=== PATIENT | female | born 1950 | race Caucasian/White ===

== ENCOUNTER → 2018-10-02 | Outpatient (CLI) | payer MEDICARE, OTHER | END | disposition home or self-care (01) | LOC: RT 09:49 | PROVIDERS: ATTEND Allergy & Immunology | DX: J45.50 Severe persistent asthma, uncomplicated (principal) | CPT/HCPCS: 36600; 82805 ==

== ENCOUNTER 2018-12-14 09:34 | Emergency (ER) | payer OTHER ==
[~2018-12-14] VITALS: Ht 157.5 cm; Wt 78.5 kg
[2018-12-14 09:38] VITALS: BP 137/77
[2018-12-14] MEDS ORDERED: HYDROcodone-ACET 7.5/325MG TAB PO ONE (10:15)
[2018-12-14] MEDS ORDERED: KETOROLAC TROMETH 60MG/2ML VIAL IM ONE (10:15)
== END 2018-12-14 11:07 | disposition home or self-care (01) ==
LOC: ER 09:34
DX: S39.012S Strain of muscle, fascia and tendon of lower back, sequela (principal); M54.41 Lumbago with sciatica, right side; J45.909 Unspecified asthma, uncomplicated; I10 Essential (primary) hypertension; I25.10 Atherosclerotic heart disease of native coronary artery without angina pectoris; X50.1XXS Overexertion from prolonged static or awkward postures, sequela
CPT/HCPCS: 72100; 93005; 96372; 99283; J1885

== ENCOUNTER → 2019-09-29 | Emergency (ER) | payer OTHER ==
[~2019-09-29] VITALS: Ht 160 cm; Wt 72.6 kg
[~2019-09-29] MED LIST: CLINDAMYCIN 600MG IV 50 ML IV ONE; CLINDAMYCIN HCL 150 MG CAP PO ONE; cefTRIAXone 1GM/50ML D5W 50 ML IV ONE
[2019-09-29 21:09] LABS: Basophils # (auto) 0.1 10 ^3/uL (0-0.2); Eosinophils # (auto) 0.5 10 ^3/uL (0-0.8); Eosinophils % (auto) 6.4 % (0.0-7.0); Hematocrit 39.2 % (36.0-46.0); Hemoglobin 13.2 g/dL (12.2-16.2); Lymphocytes # (auto) 1.8 10 ^3/uL (0.4-5.4); Lymphocytes % (auto) 23.5 % (10.0-50.0); Mean Corpuscular Hemoglobin 29.6 pg (28.0-32.0); Mean Corpuscular Hgb Conc. 33.6 g/dL (32.0-36.0); Mean Corpuscular Volume 88.1 fL (80.0-100.0); Monocytes # (auto) 0.9 10 ^3/uL (0-1.3); Monocytes % (auto) 11.7 % (0.0-12.0); Neutrophils # (auto) 4.5 10 ^3/uL (1.6-8.6); Neutrophils % (auto) 57.4 % (37.0-80.0); Nucleated Red Blood Cells % 0.1 %; Platelet Count (auto) 348 10^3/uL (140-450); Red Blood Cells 4.45 10^6/uL (4.0-5.20); Red Cell Distribution Width 14.7 % (11.8-14.3); White Blood Cell 7.8 10^3/uL (4.4-10.8)
[2019-09-29 21:30] LABS: Albumin 3.4 g/dL (3.4-5.0); Calcium 9.2 mg/dL (8.5-10.1); Potassium 3.2 mmol/L (3.5-5.1)
[2019-09-29 21:34] LABS: Bilirubin, Total 0.5 mg/dL (0.2-1.0); Total Protein 7.5 g/dL (6.4-8.2)
[2019-09-29 22:56] LABS: Urine Bacteria FEW /hpf (None Seen); Urine Blood TRACE /uL (Negative); Urine Mucus FEW (None Seen); Urine Specific Gravity 1.011 (1.001-1.035); Urine WBC 273 /hpf (0 - 5); Urine WBC Clumps PRESENT /hpf (None Seen)
[2019-09-30] VITALS: BP 105/81
== END | disposition home or self-care (01) ==
LOC: ER 18:54
DX: N39.0 Urinary tract infection, site not specified (principal); R05 Cough; R06.02 Shortness of breath; R09.81 Nasal congestion
CPT/HCPCS: 36415; 71045; 80053; 81001; 85025; 87070; 87804; 87880; 96365

== ENCOUNTER → 2019-11-30 | Emergency (ER) | payer OTHER ==
[~2019-11-30] VITALS: Ht 160 cm; Wt 74.8 kg
[~2019-11-30] MED LIST changes: +ACETAMINOPHEN 325 MG TAB PO ONE; -CLINDAMYCIN 600MG IV 50 ML IV ONE; -CLINDAMYCIN HCL 150 MG CAP PO ONE; -cefTRIAXone 1GM/50ML D5W 50 ML IV ONE
[2019-11-30 15:43] VITALS: BP 126/82
[2019-11-30 16:14] LABS: Basophils # (auto) 0 10 ^3/uL (0-0.2); Basophils % (auto) 0.4 % (0.0-2.0); Eosinophils # (auto) 0 10 ^3/uL (0-0.8); Eosinophils % (auto) 0.2 % (0.0-7.0); Hematocrit 36.6 % (36.0-46.0); Hemoglobin 12.6 g/dL (12.2-16.2); Lymphocytes # (auto) 0.9 10 ^3/uL (0.4-5.4); Lymphocytes % (auto) 11.8 % (10.0-50.0); Mean Corpuscular Hgb Conc. 34.3 g/dL (32.0-36.0); Mean Corpuscular Volume 90.4 fL (80.0-100.0); Monocytes # (auto) 0.5 10 ^3/uL (0-1.3); Monocytes % (auto) 6.8 % (0.0-12.0); Neutrophils # (auto) 5.9 10 ^3/uL (1.6-8.6); Neutrophils % (auto) 80.8 % (37.0-80.0); Nucleated Red Blood Cells % 0.1 %; Platelet Count (auto) 373 10^3/uL (140-450); Red Blood Cells 4.05 10^6/uL (4.0-5.20); Red Cell Distribution Width 14.7 % (11.8-14.3); White Blood Cell 7.3 10^3/uL (4.4-10.8)
[2019-11-30 16:34] LABS: Anion Gap 12 (5-15); Blood Urea Nitrogen 19 mg/dL (7-18); Carbon Dioxide 25 mmol/L (21-32); Chloride 98 mmol/L (98-107); Potassium 3.3 mmol/L (3.5-5.1); Sodium 135 mmol/L (136-145)
[2019-11-30 16:41] LABS: Alanine Aminotransferase 26 U/L (13-56); Albumin 3.3 g/dL (3.4-5.0); Alkaline Phosphatase 60 U/L (45-117); Aspartate Aminotransferase 17 U/L (15-37); BUN/Creatinine Ratio 15.1; Bilirubin, Total 0.4 mg/dL (0.2-1.0); GFR African American 54 mL/min; GFR Non-African American 45 mL/min; Glucose 129 mg/dL (74-106); Total Protein 7.5 g/dL (6.4-8.2)
[2019-11-30 21:12] LABS: Cholesterol 191 mg/dL (< 200)
[2019-11-30 21:14] LABS: HDL Cholesterol 38 mg/dL (40-59); LDL Cholesterol 129 mg/dL (< 100); Triglycerides 207 mg/dL (< 150)
== END | disposition home or self-care (01) ==
LOC: ER 15:18
DX: J45.909 Unspecified asthma, uncomplicated (principal); I25.10 Atherosclerotic heart disease of native coronary artery without angina pectoris; I10 Essential (primary) hypertension; Z20.828 Contact with and (suspected) exposure to other viral communicable diseases; Z90.89 Acquired absence of other organs
CPT/HCPCS: 36415; 71045; 80053; 80061; 82728; 84484; 85025; 87070; 87804; 87880; 93005; 99284; U0003

== ENCOUNTER 2020-10-26 08:58 | Emergency (ER) | payer OTHER ==
[~2020-10-26] VITALS: Ht 157.5 cm; Wt 72.6 kg
[2020-10-26 09:03] VITALS: BP 118/80
[2020-10-26] MEDS ORDERED: TETRACAINE HCL 0.5% OPTH(EYE) SOLN 4ML LEFTEYE ONE (09:30)
[2020-10-26] MEDS ORDERED: FLUORESCEIN SOD OPTH TEST STRIP LEFTEYE ONE (09:30)
[2020-10-26] MEDS ORDERED: cefTRIAXone SOD 1,000 MG VL IM ONE (11:30)
== END 2020-10-26 11:45 | disposition short-term general hospital (02) ==
LOC: ER 08:58
DX: H11.32 Conjunctival hemorrhage, left eye (principal); J32.9 Chronic sinusitis, unspecified; J45.909 Unspecified asthma, uncomplicated; I10 Essential (primary) hypertension
CPT/HCPCS: 70486; 96372; 99285; J0696